=== PATIENT | male | born 1935 | race Caucasian/White ===

== ENCOUNTER 2022-09-25 17:53 | Inpatient (IN) | payer MEDICARE ==
[2022-09-25 20:24] VITALS: BMI 25.7
[2022-09-25] MEDS ORDERED: Ondansetron PF 4 MG/2 ML Vial IVP PRN (20:34)
[2022-09-25] MEDS ORDERED: Acetaminophen 325 MG TAB PO PRN (20:34)
[2022-09-25] MEDS ORDERED: HYDROcodone/Acetaminophen 5/325 mg Tablet PO PRN (20:34)
[2022-09-25] MEDS ORDERED: Guaifenesin DM 100-10/5 ML UDCUP PO PRN (20:34)
[2022-09-25] MEDS ORDERED: Nitroglycerin 0.4 MG TAB (25 Tab Bottle) SL PRN (20:34)
[2022-09-25] MEDS ORDERED: Furosemide 40 MG/4 ML VIAL SLOW IVP SCH (20:45)
[2022-09-25] MEDS ORDERED: Amiodarone 200 MG TAB PO SCH (21:00)
[2022-09-25 21:33] LABS: Troponin I 0.168 ng/mL (< 0.028)
[2022-09-25] MEDS: Enoxaparin Sodium 100 MG/ML SYRINGE SC SCH (21:57)
[2022-09-26 04:41] LABS: Albumin 3.7 g/dL (3.4-4.8); Anion Gap 15 mmol/L (10-20); BUN (Urea Nitrogen) 22 mg/dL (8.4-25.7); BUN/Creatinine Ratio 17.74; Calc. Creatinine Clearance 54 mL/min (70-130); Calcium 8.6 mg/dL (7.8-10.44); Carbon Dioxide 25 mmol/L (23-31); Cardiac Risk 3.3 (Less than 4.5); Chloride 107 mmol/L (98-107); Cholesterol 158 mg/dl (< 200 Desired); Estimated GFR 56; Glucose 88 mg/dL (83-110); HDL Cholesterol 48 mg/dL (>60 Neg Risk); LDL Cholesterol, Calculated 96 mg/dL; Magnesium 1.9 mg/dL (1.6-2.6); Phosphorus 3.1 mg/dL (2.3-4.7); Potassium 3.5 mmol/L (3.5-5.1); Sodium 143 mmol/L (136-145); Triglycerides 68 mg/dL (Less than 150)
[2022-09-26 04:52] LABS: Free T4 (Free Thyroxine) 0.82 ng/dL (0.70-1.48)
[2022-09-26 05:50] LABS: #Eosinphils 0.1 10x3/uL (0.0-0.5); #Monocytes 0.3 10x3/uL (0.0-1.1); %Basophils 0.5 % (0.0-2.0); %Eosinophils 1.9 % (0.0-6.0); %Lymphocytes 33.9 % (18.0-47.0); %Monocytes 9.1 % (0.0-10.0); %Neutrophils 54.3 % (40.0-75.0); Hemoglobin 13.8 g/dL (13.5-17.5); Mean Corpuscular HGB CONC 33.4 g/dL (32.0-36.0); Mean Corpuscular Hemoglobin 31.2 pg (27.0-33.0); Mean Corpuscular Volume 93.2 fl (81.2-95.1); Mean Platelet Volume 12.8 fl (7.4-10.4); Platelet Count 111 10x3/uL (150-450); RBC Distribution Width 15.9 % (11.5-14.5)
[2022-09-26 05:51] LABS: Red Blood Cell (RBC) Count 4.43 10x6/uL (4.32-5.72); White Blood Cell (WBC) Count 3.8 10x3/uL (3.5-10.5)
[2022-09-26] MEDS: Furosemide 40 MG/4 ML VIAL SLOW IVP SCH ×2 (05:53→14:13)
[2022-09-26] MEDS: Enoxaparin Sodium 100 MG/ML SYRINGE SC SCH (10:02)
[2022-09-26] MEDS: Clopidogrel Bisulfate 75 MG TAB PO SCH (10:06)
[2022-09-26] MEDS: Potassium Chloride 20 MEQ TAB PO SCH (10:06)
[2022-09-26] MEDS: Aspirin Chewable 81 MG TAB PO SCH (10:06)
[2022-09-26] MEDS: Tamsulosin HCl 0.4 MG CAP PO SCH (10:06)
[2022-09-26 12:59] LABS: T4 5.5 ug/dL (4.87-11.72)
[2022-09-26] MEDS: Apixaban 5 MG TAB PO SCH (20:04)
[2022-09-27 04:54] LABS: Anion Gap 16 mmol/L (10-20); BUN (Urea Nitrogen) 26 mg/dL (8.4-25.7); Calc. Creatinine Clearance 53 mL/min (70-130); Calcium 8.6 mg/dL (7.8-10.44); Carbon Dioxide 25 mmol/L (23-31); Chloride 105 mmol/L (98-107); Estimated GFR 56; Glucose 84 mg/dL (83-110); Potassium 3.8 mmol/L (3.5-5.1); Sodium 142 mmol/L (136-145)
[2022-09-27] MEDS: Furosemide 40 MG/4 ML VIAL SLOW IVP SCH (05:50)
[2022-09-27] MEDS: Potassium Chloride 20 MEQ TAB PO SCH (08:30)
[2022-09-27] MEDS: Tamsulosin HCl 0.4 MG CAP PO SCH (08:30)
[2022-09-27] MEDS: Aspirin Chewable 81 MG TAB PO SCH (08:30)
[2022-09-27] MEDS: Clopidogrel Bisulfate 75 MG TAB PO SCH (08:30)
[2022-09-27] MEDS: Apixaban 5 MG TAB PO SCH (08:32)
[2022-09-27 09:44] LABS: Anion Gap 15 mmol/L (10-20); BUN (Urea Nitrogen) 25 mg/dL (8.4-25.7); Calc. Creatinine Clearance 47 mL/min (70-130); Carbon Dioxide 29 mmol/L (23-31); Chloride 103 mmol/L (98-107); Estimated GFR 48; Glucose 107 mg/dL (83-110); Potassium 3.3 mmol/L (3.5-5.1); Sodium 144 mmol/L (136-145)
[2022-09-27 10:00] LABS: #Monocytes 0.2 10x3/uL (0.0-1.1); #Neutrophils 1.8 10x3/uL (1.5-8.4); %Basophils 0.7 % (0.0-2.0); %Lymphocytes 33.3 % (18.0-47.0); %Neutrophils 58.7 % (40.0-75.0); Hemoglobin 14.6 g/dL (13.5-17.5); Mean Corpuscular HGB CONC 33.3 g/dL (32.0-36.0); Mean Corpuscular Hemoglobin 30.9 pg (27.0-33.0); Mean Corpuscular Volume 92.8 fl (81.2-95.1); Mean Platelet Volume 12.6 fl (7.4-10.4); Platelet Count 111 10x3/uL (150-450); RBC Distribution Width 15.6 % (11.5-14.5); Red Blood Cell (RBC) Count 4.73 10x6/uL (4.32-5.72)
[2022-09-27 12:46] VITALS: BP 95/57; TEMP 98.1
[2022-09-27] MEDS ORDERED: Apixaban 2.5 MG TAB PO SCH (21:00)
[2022-09-27] MEDS ORDERED: Atorvastatin Calcium 20 MG TAB PO SCH (21:00)
[2022-09-28] MEDS ORDERED: Levothyroxine Sodium 50 MCG TAB PO SCH (06:00)
[2022-09-28] MEDS ORDERED: Furosemide 40 MG TAB PO SCH (07:30)
== END 2022-09-27 14:57 | disposition home or self-care (01) | DRG 291 ==
LOC: CSHTELE 17:53
PROVIDERS: ADMIT Family Medicine; ATTEND Family Medicine
DX: I11.0 Hypertensive heart disease with heart failure (principal); I50.21 Acute systolic (congestive) heart failure; I48.20 Chronic atrial fibrillation, unspecified; J98.11 Atelectasis; N17.9 Acute kidney failure, unspecified; R79.89 Other specified abnormal findings of blood chemistry; E78.5 Hyperlipidemia, unspecified; N40.0 Benign prostatic hyperplasia without lower urinary tract symptoms; D69.6 Thrombocytopenia, unspecified; Z20.822 Contact with and (suspected) exposure to COVID-19; E03.9 Hypothyroidism, unspecified; Z95.810 Presence of automatic (implantable) cardiac defibrillator; Z79.01 Long term (current) use of anticoagulants; Z79.899 Other long term (current) drug therapy; Z88.8 Allergy status to other drugs, medicaments and biological substances
CPT/HCPCS: 36415; 71045; 80048; 80061; 80069; 83735; 84436; 84439; 84443; 84481; 85025; 93306; 94760; J1650; J1940; U0003; U0005